=== PATIENT | female | born 1940 | race Hispanic/Latino ===

== ENCOUNTER 2020-09-17 13:19 | Emergency (ER) | payer MEDICARE ==
[~2020-09-17] VITALS: Ht 162.6 cm; Wt 77.1 kg
[2020-09-17] MEDS ORDERED: DOXYCYCLINE HY100 MG PO (15:49)
== END 2020-09-17 16:05 | disposition home or self-care (01) ==
LOC: ER 13:57
DX: U07.1 COVID-19 (principal); J12.89 Other viral pneumonia; I10 Essential (primary) hypertension; E78.5 Hyperlipidemia, unspecified
CPT/HCPCS: 71045; 99283

== ENCOUNTER 2020-10-22 20:43 | Emergency (ER) | payer MEDICARE, OTHER ==
[~2020-10-22] VITALS: Ht 162.6 cm; Wt 77.1 kg
[~2020-10-22 20:43] MED LIST: DOXYCYCLINE HY100 MG PO
[2020-10-22 22:17] LABS: BASOPHILS # (AUTO) 0.1 (0.0-0.1); BASOPHILS % 0.7 % (0.0-1.0); EOSINOPHILS # (AUTO) 0.1 (0.0-0.4); EOSINOPHILS % 1.2 % (0.0-6.0); HEMATOCRIT 41.2 % (34.2-44.1); HEMOGLOBIN 13.2 g/dL (12.0-16.0); LYMPHOCYTES # (AUTO) 0.9 (1.0-3.2); LYMPHOCYTES % 12.4 % (18.0-39.1); MEAN CORPUSCULAR HEMOGLOBIN 30.6 pg (28-32); MEAN CORPUSCULAR VOLUME 95.4 fL (81-99); MONOCYTES # (AUTO) 0.5 (0.2-0.8); MONOCYTES % 6.6 % (4.4-11.3); NEUTROPHILS # (AUTO) 5.8 (2.1-6.9); NEUTROPHILS % 78.8 % (38.7-80.0); PLATELET COUNT 170 x10e3/uL (140-360); RED BLOOD COUNT 4.32 x10e6/uL (3.6-5.1); RED CELL DISTRIBUTION WIDTH 14.3 % (11.7-14.4)
[2020-10-22 22:35] LABS: ANION GAP 15.4 mmol/L (8-16); CALCIUM 8.6 mg/dL (8.4-10.2); CREATININE, SERUM 1.27 mg/dL (0.57-1.11); POTASSIUM 4.4 mmol/L (3.5-5.1)
[2020-10-22 22:41] LABS: CREATINE KINASE MB 1.5 ng/mL (0-5.0)
[2020-10-22 23:42] VITALS: BP 137/68
== END 2020-10-22 23:45 | disposition home or self-care (01) ==
LOC: ER 20:53
DX: I10 Essential (primary) hypertension (principal); R94.4 Abnormal results of kidney function studies; R53.1 Weakness; E78.5 Hyperlipidemia, unspecified
CPT/HCPCS: 36415; 70450; 71045; 80048; 82550; 82553; 84484; 85025; 99283

== ENCOUNTER 2021-04-27 13:45 | Emergency (ER) | payer MEDICARE, OTHER ==
[~2021-04-27] VITALS: Ht 157.5 cm; Wt 68.0 kg
== END 2021-04-27 16:30 | disposition home or self-care (01) ==
LOC: ER 16:20
DX: K11.7 Disturbances of salivary secretion (principal); I10 Essential (primary) hypertension; E78.5 Hyperlipidemia, unspecified; Z86.16 Personal history of COVID-19; Z89.122 Acquired absence of left wrist
CPT/HCPCS: 99282

== ENCOUNTER 2022-10-06 10:41 | Emergency (ER) | payer MEDICARE ==
[~2022-10-06] VITALS: Ht 157.5 cm; Wt 68.0 kg
[2022-10-06] MEDS ORDERED: Morphine 4mg INJECTION 4 MG/ML INJ IM ONE (12:30)
[2022-10-06] MEDS ORDERED: CELEBREX100 MG PO (13:33)
[2022-10-06] MEDS ORDERED: GABAPENTIN300 MG PO (13:33)
[2022-10-06] MEDS ORDERED: DOXYCYCLINE HY100 MG PO (13:35)
[2022-10-06] MEDS ORDERED: BENZONATATE200 MG PO (13:35)
== END 2022-10-06 13:45 | disposition home or self-care (01) ==
LOC: ER 11:09
DX: R50.9 Fever, unspecified (principal); J18.9 Pneumonia, unspecified organism; R05.9 Cough, unspecified; M79.632 Pain in left forearm; I10 Essential (primary) hypertension; E78.5 Hyperlipidemia, unspecified
CPT/HCPCS: 71046; 73060; 73090; 99283; J2270

== ENCOUNTER 2023-01-16 21:21 | Emergency (ER) | payer MEDICARE ==
[~2023-01-16] VITALS: Ht 157.5 cm; Wt 68.0 kg
[~2023-01-16 21:21] MED LIST changes: +BENZONATATE200 MG PO; +CELEBREX100 MG PO; +GABAPENTIN300 MG PO
[2023-01-16] MEDS ORDERED: HYDRALAZINE HCL 20 MG/ML VIAL IV ONE (22:00)
[2023-01-16] MEDS ORDERED: KEFLEX125 MG/5 M PO (23:22)
== END 2023-01-17 | disposition home or self-care (01) ==
LOC: FSED 21:26
DX: R03.0 Elevated blood-pressure reading, without diagnosis of hypertension (principal); N39.0 Urinary tract infection, site not specified; R94.4 Abnormal results of kidney function studies; I10 Essential (primary) hypertension; E78.5 Hyperlipidemia, unspecified
CPT/HCPCS: 80053; 81003; 82553; 84484; 85025; 93005; 99283

== ENCOUNTER 2025-01-07 15:19 | Emergency (ER) | payer MEDICARE ==
[~2025-01-07] VITALS: Ht 162.6 cm; Wt 72.6 kg
[~2025-01-07 15:19] MED LIST changes: +KEFLEX125 MG/5 M PO
[2025-01-07 15:25] VITALS: TEMP 98.3
[2025-01-07 16:03] LABS: BASOPHILS % 0.7 % (0.0-1.0); EOSINOPHILS # (AUTO) 0.3 (0.0-0.4); EOSINOPHILS % 4.2 % (0.0-6.0); HEMATOCRIT 34.4 % (34.2-44.1); HEMOGLOBIN 11.4 g/dL (12.0-16.0); LYMPHOCYTES # (AUTO) 1.1 (1.0-3.2); MEAN CORPUSCULAR HEMOGLOBIN 31.9 pg (28-32); MEAN CORPUSCULAR HGB CONC 33.1 g/dL (31-35); MEAN CORPUSCULAR VOLUME 96.4 fL (81-99); MONOCYTES # (AUTO) 0.4 (0.2-0.8); MONOCYTES % 7.2 % (4.4-11.3); NEUTROPHILS # (AUTO) 4.1 (2.1-6.9); NEUTROPHILS % 68.7 % (38.7-80.0); PLATELET COUNT 175 x10e3/uL (140-360); RED BLOOD COUNT 3.57 x10e6/uL (3.6-5.1); RED CELL DISTRIBUTION WIDTH 13.6 % (11.7-14.4); WHITE BLOOD COUNT 5.99 x10e3/uL (4.8-10.8)
[2025-01-07 16:14] LABS: ALBUMIN 3.5 g/dL (3.5-5.0); ALBUMIN/GLOBULIN RATIO 1.3 (0.8-2.0); ANION GAP 15.7 mmol/L (8-16); BILIRUBIN,TOTAL 0.6 mg/dL (0.2-1.2); CALCIUM 8.4 mg/dL (8.4-10.2); CREATININE, SERUM 1.53 mg/dL (0.57-1.11); POTASSIUM 4.7 mmol/L (3.5-5.1); TOTAL PROTEIN 6.3 g/dL (6.5-8.1)
[2025-01-07 17:41] LABS: INR 0.9; PARTIAL THROMBOPLASTIN TIME 27.3 seconds (23.8-35.5); PROTHROMBIN TIME 12.7 seconds (11.9-14.5)
[2025-01-07 18:00] VITALS: PULSE 57; RESP 18; O2SAT 97
== END 2025-01-07 19:06 | disposition short-term general hospital (02) ==
LOC: ER 15:23
DX: G89.18 Other acute postprocedural pain (principal); R23.8 Other skin changes; I10 Essential (primary) hypertension; E78.5 Hyperlipidemia, unspecified; Z79.82 Long term (current) use of aspirin; Z79.01 Long term (current) use of anticoagulants
CPT/HCPCS: 36415; 80053; 85025; 85610; 85730; 99284

== ENCOUNTER 2025-03-29 11:03 | Emergency (ER) | payer MEDICARE ==
[~2025-03-29] VITALS: Ht 162.6 cm; Wt 73.5 kg
[2025-03-29 12:22] VITALS: TEMP 99
[2025-03-29] MEDS ORDERED: CEPHALEXIN500 MG PO (13:31)
[2025-03-29 14:00] VITALS: PULSE 56; RESP 16
[2025-03-29] MEDS: TETANUS/DIPHTHERIA TOX ADULT 0.5 ML SYR IM ONE (14:43)
[2025-03-29] MEDS: HYDROCODONE/APAP 5MG-325MG TAB PO ONE (14:44)
[2025-03-29 14:49] VITALS: BP 141/58; PULSE 59; RESP 18; TEMP 98.3; O2SAT 98
== END 2025-03-29 14:51 | disposition home or self-care (01) ==
LOC: ER 12:30
DX: S51.812A Laceration without foreign body of left forearm, initial encounter (principal); W06.XXXA Fall from bed, initial encounter; Y93.9 Activity, unspecified; Y92.9 Unspecified place or not applicable; I10 Essential (primary) hypertension; F32.A Depression, unspecified; E78.5 Hyperlipidemia, unspecified; Z89.202 Acquired absence of left upper limb, unspecified level; Z23 Encounter for immunization
CPT/HCPCS: 90471; 90714; 99283